=== PATIENT | female | born 1980 | race Caucasian/White ===

== ENCOUNTER 2022-06-04 16:20 | Emergency (ER) | payer OTHER ==
[~2022-06-04] VITALS: Ht 162.6 cm; Wt 68.0 kg
--- NOTE | 2022-06-04 17:08 | NUR ---
TIARA TERRY AT BEDSIDE FOR EVAL.
--- NOTE | 2022-06-04 17:16 | NUR ---
PT TAKEN TO RADIOLOGY FOR HEAD AND C SPINE CT SCAN.
[2022-06-04] MEDS ORDERED: ACETAMINOPHEN ES 500 MG TABLET ONE (17:27)
[2022-06-04] MEDS ORDERED: ACETAMINOPHEN 325 MG TABLET PO ONE (17:30)
[2022-06-04] MEDS ORDERED: NAPR-1009 PO (18:55)
[2022-06-04 19:03] VITALS: BP 126/80
--- NOTE | 2022-06-04 19:03 | NUR ---
Patient discharged to home in stable condition. Written and verbal after care instructions given. Patient verbalizes understanding of instruction.
[2022-06-04 19:55] LABS: ALANINE AMINOTRANSFERASE 15 U/L (12-78); ALBUMIN 4.1 g/dL (3.4-5.0); ALKALINE PHOSPHATASE 52 U/L (46-116); ASPARTATE AMINOTRANSFERASE 17 U/L (15-37); BILIRUBIN,DIRECT 0.1 mg/dL (0.0-0.2); CALCIUM, SERUM 9.2 mg/dL (8.5-10.1); CREATININE 0.9 mg/dL (0.6-1.3); GLUCOSE 99 mg/dL (74-106); TOTAL PROTEIN, SERUM 7.9 g/dL (6.4-8.2); UREA NITROGEN, BLOOD 12 mg/dL (7-18)
[2022-06-04 20:22] LABS: BASOPHILS # (AUTO) 0.1 K/uL (0.0-0.2); BASOPHILS % (AUTO) 0.6 % (0.0-2.0); EOSINOPHILS % (AUTO) 1.2 % (0.0-6.0); HEMATOCRIT 41 % (33-45); HEMOGLOBIN 13.1 g/dL (11.5-14.8); LYMPHOCYTES # (AUTO) 2.5 K/uL (0.8-4.8); LYMPHOCYTES % (AUTO) 30.8 % (20.0-44.0); MEAN CORPUSCULAR HGB CONC 32 g/dl (31.0-36.0); MEAN CORPUSCULAR VOLUME 96 fL (82-100); MONOCYTES # (AUTO) 0.5 K/uL (0.1-1.30); MONOCYTES % (AUTO) 6.6 % (2.0-12.0); NEUTROPHILS # (AUTO) 4.9 K/uL (1.8-8.9); NEUTROPHILS % (AUTO) 60.8 % (43.0-81.0); PLATELET COUNT (AUTO) 294 K/uL (150-450); RED BLOOD CELL COUNT(AUTO) 4.25 MIL/uL (4.0-5.2); WHITE BLOOD COUNT (AUTO) 8.1 K/uL (4.3-11.0)
[2022-06-04 21:36] LABS: CARBON DIOXIDE 17 mmol/L (21-32); CHLORIDE 105 mmol/L (98-107); POTASSIUM 4.6 mmol/L (3.5-5.1); SODIUM SERUM 141 mmol/L (136-145)
== END 2022-06-04 19:04 | disposition home or self-care (01) ==
LOC: ER 16:46
DX: S16.1XXA Strain of muscle, fascia and tendon at neck level, initial encounter (principal); R55 Syncope and collapse; R51.9 Headache, unspecified; M48.32 Traumatic spondylopathy, cervical region; W18.30XA Fall on same level, unspecified, initial encounter; Y93.89 Activity, other specified; Y92.89 Other specified places as the place of occurrence of the external cause; Y99.8 Other external cause status
CPT/HCPCS: 36415; 70450-TC; 72125-TC; 80048-TC; 80076-TC; 85025-TC